=== PATIENT | male | born 2000 | race Caucasian/White ===

== ENCOUNTER 2024-01-11 20:28 | Emergency (ER) | payer BC, SELFPAY ==
[2024-01-11 20:36] VITALS: BP 132/80; BMI 21.5
--- NOTE | 2024-01-11 20:53 | EDRN ---
Ruth Ann MABRY in room w/pt.
[2024-01-11] MEDS: PEPCID 20 MG IV (21:15)
[2024-01-11] MEDS: NSS 1000 IV (21:15)
--- NOTE | 2024-01-11 21:22 | ED.GENMED ---
History of Present Illness
<Alexander Almodovar PA-C - Last Filed: 01/12/24 01:02>
General
Chief Complaint: Allergic Reaction
Source: patient
Exam Limitations: none
Time Seen by Provider: 01/11/24 20:37
History of Present Illness
History of Present Illness:
23-year-old male with history of peanut allergy had a piece of cake earlier today and 10 minutes afterwards developed throat itchiness trouble breathing nausea rash. He was given an EpiPen about an hour prior to arrival by his family. He was given
50 of Benadryl and 10 of Decadron en route. He states upon my first interview he feels slightly improved. There is nausea without vomiting. So this persistent rash and slight itchy throat.
Phy Exam
<PEGGY Herman Last Filed: 01/12/24 01:02>
Physical Exam
Physical Exam:
General: Well-developed male no increased work of breathing
HEENT: Normocephalic atraumatic posterior pharynx patent tongue is not swollen neck is supple no stridor
Heart: Tachycardic but regular
Lungs: No obvious wheeze clear skin: Urticarial rash over the arms and trunk
And face
Extremities: No cyanosis
Course
<PEGGY Herman Last Filed: 01/12/24 01:02>
Orders/Labs/Results
Orders:
Orders
01/11/24 21:03
0.9% Sodium Chloride 1000 ml [Nss] 1,000 ml IV BOLUS
Famotidine [Pepcid] 20 mg IV NOW STA
01/11/24 21:20
EPINEPHrine PF [Adrenalin] 0.3 mg IM NOW STA
01/11/24 21:21
Albuterol Nebs [Ventolin Nebules] 2.5 mg INH R NOW STA
Vital Signs
Initial and Last Documented VS:
Initial Vital Signs
Temp Pulse Resp BP Pulse Ox
98.5 F 92 18 132/80 96
01/11/24 20:36 01/11/24 20:36 01/11/24 20:36 01/11/24 20:36 01/11/24 20:36
Last Documented Vital Signs
Temp Pulse Resp BP Pulse Ox
98.5 F 96 20 113/86 96
01/11/24 20:36 01/11/24 23:53 01/11/24 23:53 01/11/24 23:53 01/11/24 23:53
<Francisco Valentin MD - Last Filed: 01/11/24 23:14>
Orders/Labs/Results
Orders:
Orders
01/11/24 21:03
0.9% Sodium Chloride 1000 ml [Nss] 1,000 ml IV BOLUS
Famotidine [Pepcid] 20 mg IV NOW STA
01/11/24 21:20
EPINEPHrine PF [Adrenalin] 0.3 mg IM NOW STA
01/11/24 21:21
Albuterol Nebs [Ventolin Nebules] 2.5 mg INH R NOW STA
Vital Signs
Initial and Last Documented VS:
Initial Vital Signs
Temp Pulse Resp BP Pulse Ox
98.5 F 92 18 132/80 96
01/11/24 20:36 01/11/24 20:36 01/11/24 20:36 01/11/24 20:36 01/11/24 20:36
Last Documented Vital Signs
Temp Pulse Resp BP Pulse Ox
98.5 F 96 20 113/86 96
01/11/24 20:36 01/11/24 23:53 01/11/24 23:53 01/11/24 23:53 01/11/24 23:53
<Alexander Almodovar PA-C - Last Filed: 01/12/24 01:02>
MDM/Problems Addressed
Differential Diagnosis Includes:
Patient with allergic reaction possibly to nuts. Blood pressure stable rash developing on arms and chest as well as face. He is not hypoxic. Pepcid ordered fluids given
Reevaluated patient has nurse call me back into the room. Patient notes increased trouble breathing. Mother now admits that she not sure if she administer the EpiPen the right way. Additional epi was given. Albuterol ordered
<Alexander Almodovar PA-C - Last Filed: 01/12/24 01:02>
*Critical Care Note
Total Time (30-74mins, 75-104mins- exclusive of procedures): Not Applicable
<Alexander Almodovar PA-C - Last Filed: 01/12/24 01:02>
Update Note
Update Note:
Patient reevaluated multiple times. He states his breathing did get worse at 1 point received a second dose of epinephrine. Since then he has been steadily improving. He is observed for 4 hours after the second dose of epinephrine. Rash is gone
breathing is normal. Vital signs are good. At this point he stable for discharge. A prescription for prednisone and an EpiPen was sent to his pharmacy
ED Attending Note
<Alexander Almodovar PA-C - Last Filed: 01/12/24 01:02>
-
Portions of this chart may have been created with voice recognition software.� Occasional wrong word or��sound alike� substitutions may have occurred due to the inherent limitations of voice recognition software.
<Francisco Valentin MD - Last Filed: 01/11/24 23:14>
ED Attending Note
Patient seen and examined by attending physician: Yes
ED Attending Note:
I have seen and evaluated the patient with a [id number] encounter. I have spoken to the advance practicer provider and involved in the medical history, the physical exam, medical decision making.
Evaluation and management service: agree unless noted differently below.
Results interpretation: agree unless noted differently below.
Focused HPI: 23-year-old male with past medical history as noted presents with his mother for evaluation of allergic reaction. Patient has a severe allergy to tree nuts. He had a piece of cake tonight at around 7 PM and about 10 minutes later
began having diffuse pruritus and hives particularly on his chest and back, face; he started having shortness of breath and tightness in his throat. His mother gave him his EpiPen at around 7:45 PM and called EMS. On their arrival he was given a
dose of Decadron 10 mg IV, Benadryl 50 mg IV and was given IV fluids. He was transported to the emergency room. He still reports tightness in the chest and pruritus, tightness in the throat is improved. No cramping, diarrhea, vomiting.
Physical exam: Awake alert. Mild tachycardia otherwise normal vitals�notably normotensive. He has flushing of the face, scattered hives on the chest, abdomen, back. No hives noted on the extremities. He has no swelling of the lips or tongue, no
uvular edema. He has faint scattered wheeze on lung auscultation.
Medical Decision Makin-year-old male presents with anaphylaxis after eating a piece of cake that he thinks contains tree nuts; has known severe allergy. Given steroids and Benadryl by EMS prehospital and was also given EpiPen by his mother.
Still symptomatic but slightly improved. Will repeat epinephrine. Add Pepcid. Treat with albuterol. Reassess
Clinical reassessment symptoms greatly improved with additional treatment here. Hives improved, facial flushing resolved. No longer wheezing on lung auscultation. He says he is feeling essentially back to normal. Will continue to monitor for
prolonged period after repeat epinephrine dose. If remains asymptomatic after 4 to 6-hour observation consider discharge on steroid with EpiPen refill. If he requires additional treatment/has rebound symptoms likely plan for admission.
Discharge Plan
Departure
Patient Disposition: Home (Routine Discharge)
Date of Disposition: 01/12/24
Time of Disposition: 01:00
Patient with high blood pressure during this ER visit?: No
Discharge Problem:
Allergic reaction
Instructions: Hives (DC)
Prescriptions:
New
epinephrine [EpiPen] 0.3 mg/0.3 mL auto-injector
0.3 mg IM .STAT PRN (Reason: anaphylaxis) Qty: 1 0RF
prednisone 20 mg tablet
40 mg PO DAILY 5 Days Qty: 10 0RF
Referrals:
Tor Vogel DO [Family Provider] -
Stand Alone Forms: Return to Work
Activity Restrictions/Additional Instructions:
You may continue Benadryl before hours if needed. Return here for worsening symptoms.
Interventions
Interventions:
*Risk Screen - Suicide Last Done: 01/11/24 20:32
*General Assessment Last Done: 01/11/24 20:32
*Neglect/Abuse Screening Last Done: 01/11/24 20:32
ED- Fall Risk Assessment Last Done: 01/11/24 20:34
*ED COVID-19 Vaccine History Last Done: 01/11/24 20:33
ED- Cardiac Assessment Last Done: 01/11/24 20:45
ED- Pulmonary Assessment Last Done: 01/11/24 20:45
ED-Skin Assessment Last Done: 01/11/24 20:52
Discharge Date and Time
Print Language: [id number]
[2024-01-11] MEDS: ADRENALIN 0.3 MG IM (21:26)
[2024-01-11] MEDS: VENTOLIN NEBULES 2.5 MG INH (21:39)
[2024-01-11 22:16] VITALS: BP 124/89
[2024-01-11 23:53] VITALS: BP 113/86
== END 2024-01-12 01:39 | disposition home or self-care (01) ==
LOC: EMR 20:28
PROVIDERS: EMERGENCY PHYSICIAN Emergency Medicine; FAMILY PHYSICIAN Family Medicine
DX: T78.1XXA Other adverse food reactions, not elsewhere classified, initial encounter (principal); L50.0 Allergic urticaria; X58.XXXA Exposure to other specified factors, initial encounter
CPT/HCPCS: 99284; 96374; 96361; 94640; 96372